=== PATIENT | male | born 1995 | race Caucasian/White ===

== ENCOUNTER 2017-03-21 09:48 | Emergency (ER) | payer OTHER ==
--- NOTE | 2017-03-21 10:01 | PDOC ---
History of Present Illness - General Chief Complaint: Cold Symptoms Stated Complaint: COUGH,BODY ACHES Time Seen by Provider: 03/21/17 09:59 - History of Present Illness Initial Comments: 03/23/17 07:26 Chief complaint: Sore throat, runny nose, and body aches History of present illness: Symptoms present for 2 days. No fevers/chills, productive cough, abdominal pain, nausea, vomiting, diarrhea. Eating and drinking well Review of systems: As above. In addition, no chest pain, shortness of breath, urinary tract symptoms. Past medical history: No significant medical or surgical problems. Healthy male Social history: Smokes marijuana but no other drugs, occasional social alcohol, no tobacco. Intermittent employment. Lives with friends. Family history: Reviewed and noncontributory Physical exam: Alert and oriented well-developed well-nourished acute distress cheerful and cooperative Afebrile, vital signs normal HEENT: Mild pharyngeal injection, watery nasal discharge, ears clear. Neck supple without bruit mass or nodes Chest clear CV regular without murmur rub or gallop Abdomen benign Extremities no CCE Skin clear, no rash, adequate turgor and mucous membranes Neurological intact, and gait stable and nontender. Impression: Viral URI, rule out strep. Rapid strep, throat culture, and further treatment depending on results Past History - Past Medical History Allergies/Adverse Reactions: Allergies Allergy/AdvReac Type Severity Reaction Status Date / Time No Known Allergies Allergy Verified 03/21/17 09:49 Home Medications: Ambulatory Orders Azithromycin 250 mg PO DAILY #4 tablet 03/21/17 Medical Decision Making - Medical Decision Making 03/23/17 07:29 Strep screen is positive. Antibiotics prescribed. Rest fluids and Tylenol or Motrin as needed. Follow-up with primary physician. Roommate also treated today. *DC/Admit/Observation/Transfer Diagnosis at time of Disposition: Streptococcal sore throat - Discharge Dispostion Disposition: HOME Condition at time of disposition: Improved - Prescriptions Prescriptions: Azithromycin 250 mg PO DAILY #4 tablet
[2017-03-21 10:14] VITALS: BP 121/77; PULSE 75; TEMP 98.1; BMI 20.3
[2017-03-21] MEDS ORDERED: IBUPROFEN 600 MG TABLET (FP) PO ONE ×2 (11:06)
[2017-03-21] MEDS ORDERED: AZITHROMYCIN 250 MG TABLET (FP) PO ONE (11:09)
[2017-03-21] MEDS ORDERED: AZITHROMYCIN 250 MG TABLET (FP) ONE (11:11)
[2017-03-21 12:02] LABS: HIV 1 & 2 AB NEGATIVE; HIV 1 AGp24 NEGATIVE
[2017-03-21 12:11] LABS: URINE MARIJUANA THC POSITIVE ng/ml (CUTOFF=50)
== END 2017-03-21 12:44 | disposition home or self-care (01) ==
LOC: FER 09:48
DX: J02.0 Streptococcal pharyngitis (principal)
CPT/HCPCS: 36415; 80307; 87070; 87077; 87389; 87430; 99283-25